=== PATIENT | female | born 1970 | race Caucasian/White ===

== ENCOUNTER 2022-06-24 11:27 | Emergency (ER) | payer SELFPAY ==
[~2022-06-24] VITALS: Ht 154.9 cm; Wt 37.2 kg
[2022-06-24] MEDS ORDERED: LOSARTAN POTASSIUM 100 MG TAB PO ONE (12:00)
[2022-06-24] MEDS ORDERED: LACTATED RINGER'S 1,000 ML INJ ONE (12:00)
[2022-06-24] MEDS ORDERED: DIAZEPAM 5 MG TAB PO PRN (12:00)
[2022-06-24] MEDS ORDERED: DONNATAL/LIDOCAINE/MAALOX 30 ML SUSP PO NR (12:00)
[2022-06-24] MEDS ORDERED: FAMOTIDINE 20 MG/2 ML VIAL IV ONE (12:00)
[2022-06-24 12:08] LABS: BASOPHILS # (AUTO) 0.1 (0.0-0.1); BASOPHILS % 0.4 % (0.0-1.0); HEMATOCRIT 32.4 % (34.2-44.1); HEMOGLOBIN 10.8 g/dL (12.0-16.0); LYMPHOCYTES # (AUTO) 1.1 (1.0-3.2); MEAN CORPUSCULAR HEMOGLOBIN 29.4 pg (28-32); MEAN CORPUSCULAR HGB CONC 33.3 g/dL (31-35); MEAN CORPUSCULAR VOLUME 88.3 fL (81-99); MONOCYTES # (AUTO) 2.1 (0.2-0.8); MONOCYTES % 9.6 % (4.4-11.3); NEUTROPHILS # (AUTO) 18.6 (2.1-6.9); NEUTROPHILS % 84.2 % (38.7-80.0); PLATELET COUNT 431 x10e3/uL (140-360); RED BLOOD COUNT 3.67 x10e6/uL (3.6-5.1); RED CELL DISTRIBUTION WIDTH 13.1 % (11.7-14.4)
[2022-06-24 12:19] LABS: ALBUMIN 4.1 g/dL (3.5-5.0); ANION GAP 21.6 mmol/L (8-16); CALCIUM 9.8 mg/dL (8.4-10.2); CREATININE, SERUM 0.72 mg/dL (0.57-1.11)
[2022-06-24 12:23] LABS: POTASSIUM 2.6 mmol/L (3.5-5.1)
[2022-06-24] MEDS ORDERED: POTASSIUM CHLORIDE 20 MEQ TAB CR PO NR (12:30)
[2022-06-24 13:13] LABS: AMPHETAMINES SCREEN,URINE NEGATIVE (NEGATIVE); BENZODIAZEPINES SCREEN,URINE NEGATIVE (NEGATIVE); CLARITY,URINE CLEAR (CLEAR); COLOR,URINE YELLOW (YELLOW); KETONES,URINE NEGATIVE (NEGATIVE); LEUKOCYTE ESTERASE ,URINE NEGATIVE (NEGATIVE); NITRITE,URINE NEGATIVE (NEGATIVE); PHENCYCLIDINE SCREEN,URINE NEGATIVE (NEGATIVE); PROTEIN,URINE DIPSTICK NEGATIVE (NEGATIVE); URINE UROBILINOGEN 0.2 mg/dL (0.2 - 1)
[2022-06-24 13:16] LABS: BACTERIA,URINE FEW /HPF; EPITHELIAL CELLS,URINE FEW /LPF; RBC,URINE 0-5 /HPF (0-5); WBC,URINE (MAN) 0-5 /HPF (0-5)
[2022-06-24] MEDS ORDERED: LOSARTAN POTASS50 MG PO (14:21)
[2022-06-24] MEDS ORDERED: POTASSIUM CHLO20 ME1 PO (14:21)
[2022-06-24] MEDS ORDERED: PEPCID20 MG PO (14:21)
[2022-06-24 14:41] VITALS: BP 164/92
== END 2022-06-24 14:41 | disposition home or self-care (01) ==
LOC: ER 11:32
DX: R07.89 Other chest pain (principal); I10 Essential (primary) hypertension
CPT/HCPCS: 36415; 71045; 80053; 80307; 81001; 83690; 83880; 84484; 85025; 93005; 99284; J7121

== ENCOUNTER 2023-01-30 19:09 | Emergency (ER) | payer SELFPAY ==
[~2023-01-30] VITALS: Ht 154.9 cm; Wt 37.2 kg
[~2023-01-30 19:09] MED LIST: LOSARTAN POTASS50 MG PO; PEPCID20 MG PO; POTASSIUM CHLO20 ME1 PO
[2023-01-30 20:38] LABS: BASOPHILS # (AUTO) 0.1 (0.0-0.1); BASOPHILS % 0.5 % (0.0-1.0); EOSINOPHILS # (AUTO) 0.1 (0.0-0.4); EOSINOPHILS % 0.6 % (0.0-6.0); HEMATOCRIT 24.5 % (34.2-44.1); HEMOGLOBIN 7.5 g/dL (12.0-16.0); LYMPHOCYTES # (AUTO) 1.3 (1.0-3.2); LYMPHOCYTES % 13.2 % (18.0-39.1); MEAN CORPUSCULAR HEMOGLOBIN 20.6 pg (28-32); MEAN CORPUSCULAR HGB CONC 30.6 g/dL (31-35); MEAN CORPUSCULAR VOLUME 67.3 fL (81-99); MONOCYTES # (AUTO) 1.4 (0.2-0.8); MONOCYTES % 13.6 % (4.4-11.3); NEUTROPHILS # (AUTO) 7.3 (2.1-6.9); NEUTROPHILS % 71.6 % (38.7-80.0); PLATELET COUNT 383 x10e3/uL (140-360); RED BLOOD COUNT 3.64 x10e6/uL (3.6-5.1); RED CELL DISTRIBUTION WIDTH 24.5 % (11.7-14.4)
[2023-01-30] MEDS ORDERED: ALBUTEROL SULF 0.083% NEB SOLN 3 ML NEB NEB STA (20:38)
[2023-01-30] MEDS ORDERED: METHYLPREDNISOLONE SOD SUCC 125 MG/2ML VIAL IV STA (20:38)
[2023-01-30] MEDS ORDERED: IPRATROPIUM BROMIDE 0.02% 2.5 ML NEB NEB STA (20:48)
[2023-01-30] MEDS ORDERED: ALBUTEROL/IPRATROPIUM 3 ML NEB ONE (20:49)
[2023-01-30 20:50] VITALS: PULSE 81; RESP 16; O2SAT 100
[2023-01-30 20:52] LABS: ALBUMIN 2.8 g/dL (3.5-5.0); ALBUMIN/GLOBULIN RATIO 0.9 (0.8-2.0); ANION GAP 14.8 mmol/L (8-16); CALCIUM 7.9 mg/dL (8.4-10.2); CREATININE, SERUM 1.16 mg/dL (0.57-1.11)
[2023-01-30 20:55] LABS: POTASSIUM 1.8 mmol/L (3.5-5.1)
[2023-01-30] MEDS ORDERED: POTASSIUM CHLORIDE 10MEQ EA PO ONE (20:56)
[2023-01-30] MEDS ORDERED: POTASSIUM CHLORIDE 20MEQ/100ML 300 ML IV STA (20:56)
[2023-01-30 20:59] LABS: CREATINE KINASE MB 4.2 ng/mL (0-5.0)
[2023-01-30] MEDS ORDERED: POTASSIUM CHLORIDE 10MEQ EA ONE (21:03)
[2023-01-30 21:26] LABS: EOSINOPHILS % (MANUAL) 1 % (0-7); HYPOCHROMASIA SLIGHT; LYMPHOCYTES % (MANUAL) 19 % (19-48); MICROCYTOSIS SLIGHT; MONOCYTES % (MANUAL) 7 % (3.4-9.0); NEUTROPHILS % (MANUAL) 72 % (40-74); PLATELET ESTIMATE SLIGHTLY INCREASED; PLATELET MORPHOLOGY COMMENT FEW LARGE; RBC MORPHOLOGY COMMENT ABNORMAL
[2023-01-30 22:02] LABS: AMPHETAMINES SCREEN,URINE NEGATIVE (NEGATIVE); BENZODIAZEPINES SCREEN,URINE NEGATIVE (NEGATIVE); PHENCYCLIDINE SCREEN,URINE NEGATIVE (NEGATIVE)
[2023-01-31 01:18] LABS: ALBUMIN 2.7 g/dL (3.5-5.0); ALBUMIN/GLOBULIN RATIO 0.8 (0.8-2.0); ANION GAP 14.7 mmol/L (8-16); CALCIUM 8.2 mg/dL (8.4-10.2); CREATININE, SERUM 0.86 mg/dL (0.57-1.11)
[2023-01-31 01:29] LABS: POTASSIUM 2.7 mmol/L (3.5-5.1)
[2023-01-31 03:53] VITALS: BP 159/73; PULSE 87; RESP 18; TEMP 98.9; O2SAT 100
[2023-01-31] MEDS ORDERED: IOPAMIDOL 370 MG/ML 100 ML INFUS..BTL INJ ONE (05:54)
== END 2023-01-31 03:59 | disposition other institution (70) ==
LOC: ER 20:05
DX: R09.02 Hypoxemia (principal); R07.9 Chest pain, unspecified; J44.9 Chronic obstructive pulmonary disease, unspecified; E87.6 Hypokalemia; R91.8 Other nonspecific abnormal finding of lung field; I10 Essential (primary) hypertension; E87.1 Hypo-osmolality and hyponatremia; R60.9 Edema, unspecified; R94.31 Abnormal electrocardiogram [ECG] [EKG]; Z20.822 Contact with and (suspected) exposure to COVID-19; F17.210 Nicotine dependence, cigarettes, uncomplicated
CPT/HCPCS: 36415; 71260; 80053; 80307; 82550; 82553; 83690; 83880; 84484; 85025; 85379; 93005; 94640; 94799; 99284; J2930; J3480; Q9967; U0002

== ENCOUNTER 2023-02-05 01:11 | Inpatient (IN) | payer SELFPAY ==
[2023-02-05] VITALS (10 sets, daily range): BP systolic 169–178; BP diastolic 75–82; PULSE 98–115; RESP 17–22; TEMP 98–99.3; O2SAT 92–100
[~2023-02-05] VITALS: Ht 154.9 cm; Wt 47.6 kg
[2023-02-05] MEDS ORDERED: ALBUTEROL SULF 0.083% NEB SOLN 3 ML NEB NEB STA (01:39)
[2023-02-05] MEDS ORDERED: ACETAMINOPHEN 325 MG TAB ONE (01:44)
[2023-02-05] MEDS ORDERED: IPRATROPIUM BROMIDE 0.02% 2.5 ML NEB NEB ONE (01:45)
[2023-02-05] MEDS ORDERED: ACETAMINOPHEN 325 MG TAB PO ONE (01:45)
[2023-02-05 01:53] LABS: BASOPHILS % 0.2 % (0.0-1.0); HEMOGLOBIN 6.5 g/dL (12.0-16.0); LYMPHOCYTES # (AUTO) 2.8 (1.0-3.2); LYMPHOCYTES % 30.7 % (18.0-39.1); MEAN CORPUSCULAR HEMOGLOBIN 20.1 pg (28-32); MEAN CORPUSCULAR VOLUME 69.3 fL (81-99); MONOCYTES # (AUTO) 1.3 (0.2-0.8); MONOCYTES % 14.4 % (4.4-11.3); NEUTROPHILS # (AUTO) 4.9 (2.1-6.9); PLATELET COUNT 615 x10e3/uL (140-360); RED BLOOD COUNT 3.23 x10e6/uL (3.6-5.1); RED CELL DISTRIBUTION WIDTH 25.3 % (11.7-14.4)
[2023-02-05 02:01] LABS: HEMATOCRIT 22.4 % (34.2-44.1)
[2023-02-05 02:12] LABS: ALBUMIN/GLOBULIN RATIO 0.9 (0.8-2.0); ANION GAP 14.7 mmol/L (8-16); CALCIUM 8.4 mg/dL (8.4-10.2); CREATININE, SERUM 0.68 mg/dL (0.57-1.11); POTASSIUM 4.7 mmol/L (3.5-5.1)
[2023-02-05 02:19] LABS: CREATINE KINASE MB 1.6 ng/mL (0-5.0)
[2023-02-05 02:20] LABS: B-TYPE NATRIURETIC PEPTIDE2 678.3 pg/mL (0-100)
[2023-02-05] MEDS ORDERED: SODIUM CHLORIDE 0.9% 250ML 250 ML IV ONE (02:30)
[2023-02-05] MEDS ORDERED: SODIUM CHLORIDE FLUSH 10 ML SYR INJ PRN (02:45)
[2023-02-05] MEDS ORDERED: FUROSEMIDE INJ 10 MG/ML 4 ML VIAL IV ONE (02:45)
[2023-02-05] MEDS ORDERED: ALBUTEROL/IPRATROPIUM 3 ML NEB NEB SCH (03:00)
[2023-02-05 03:16] LABS: FERRITIN 15.87 ng/mL (4.63-204.00)
[2023-02-05] MEDS: IPRATROPIUM BROMIDE 0.02% 2.5 ML NEB NEB SCH ×2 (03:30→06:15)
[2023-02-05] MEDS: ALBUTEROL SULF 0.083% NEB SOLN 3 ML NEB NEB SCH ×2 (03:30→06:15)
[2023-02-05] MEDS: METHYLPREDNISOLONE SOD SUCC 40 MG/ML VIAL 1ML IV SCH ×2 (06:40→12:00)
[2023-02-05] MEDS: FUROSEMIDE INJ 10 MG/ML 4 ML VIAL IV SCH (09:00)
[2023-02-05 09:04] LABS: CREATINE KINASE MB 1.9 ng/mL (0-5.0)
[2023-02-05] MEDS ORDERED: ALBUTEROL/IPRATROPIUM 3 ML NEB NEB PRN (09:45)
[2023-02-05] MEDS ORDERED: CHLORDIAZEPOXIDE HCL 10 MG CAP PO PRN (09:45)
[2023-02-05] MEDS ORDERED: SODIUM CHLORIDE 0.9% 250ML 250 ML ONE (09:54)
[2023-02-05] MEDS ORDERED: IOPAMIDOL 370 MG/ML 100 ML INFUS..BTL INJ ONE (11:13)
[2023-02-05] MEDS ORDERED: AMLODIPINE BESY10 MG PO (12:07)
[2023-02-05] MEDS ORDERED: ACETAMINOPHEN 325 MG TAB PO PRN (12:15)
[2023-02-05] MEDS: ALBUTEROL/IPRATROPIUM 3 ML NEB NEB SCH ×2 (14:14→19:00)
[2023-02-05 16:40] LABS: CREATINE KINASE MB 1.6 ng/mL (0-5.0)
[2023-02-05] MEDS ORDERED: LOSARTAN POTASSIUM 100 MG TAB ONE (18:13)
[2023-02-05] MEDS ORDERED: AMLODIPINE BESYLATE 10 MG TAB ONE (18:13)
[2023-02-05] MEDS: AMLODIPINE BESYLATE 10 MG TAB PO SCH (18:19)
[2023-02-05] MEDS ORDERED: PREDNISONE 10 MG TAB PO SCH (21:00)
[2023-02-06] VITALS (9 sets, daily range): BP systolic 114–166; BP diastolic 57–76; PULSE 75–102; RESP 17–22; TEMP 97.8–99.7; O2SAT 93–98
[2023-02-06] MEDS: ALBUTEROL/IPRATROPIUM 3 ML NEB NEB SCH ×4 (01:00→20:05)
[2023-02-06 06:48] LABS: BASOPHILS % 0.1 % (0.0-1.0); HEMOGLOBIN 10.6 g/dL (12.0-16.0); LYMPHOCYTES # (AUTO) 0.8 (1.0-3.2); LYMPHOCYTES % 8.9 % (18.0-39.1); MEAN CORPUSCULAR HEMOGLOBIN 23.5 pg (28-32); MEAN CORPUSCULAR HGB CONC 31.2 g/dL (31-35); MEAN CORPUSCULAR VOLUME 75.4 fL (81-99); MONOCYTES % 11.5 % (4.4-11.3); NEUTROPHILS # (AUTO) 7.1 (2.1-6.9); NEUTROPHILS % 78.6 % (38.7-80.0); PLATELET COUNT 550 x10e3/uL (140-360); RED BLOOD COUNT 4.51 x10e6/uL (3.6-5.1)
[2023-02-06 07:16] LABS: ALBUMIN 2.9 g/dL (3.5-5.0); ALBUMIN/GLOBULIN RATIO 0.9 (0.8-2.0); ANION GAP 14.4 mmol/L (8-16); CALCIUM 8.7 mg/dL (8.4-10.2); CREATININE, SERUM 0.74 mg/dL (0.57-1.11); POTASSIUM 3.4 mmol/L (3.5-5.1)
[2023-02-06] MEDS ORDERED: SODIUM CHLORIDE 0.9% 100 ML ONE (08:07)
[2023-02-06] MEDS ORDERED: LOSARTAN POTASSIUM 25 MG TAB PO SCH (09:00)
[2023-02-06] MEDS ORDERED: IRON SUCROSE 100 MG in SODIUM CHLORIDE 0.9% 100 ML IV SCH (09:00)
[2023-02-06] MEDS: FUROSEMIDE INJ 10 MG/ML 4 ML VIAL IV SCH (09:43)
[2023-02-06] MEDS: LISINOPRIL 20 MG TAB PO SCH (09:44)
[2023-02-06] MEDS: AMLODIPINE BESYLATE 10 MG TAB PO SCH (09:44)
[2023-02-06] MEDS: PREDNISONE 10 MG TAB PO SCH ×2 (09:45→21:12)
[2023-02-06] MEDS: METOPROLOL TARTRATE 25 MG TAB PO SCH ×2 (09:48→16:49)
[2023-02-06] MEDS: BUDESONIDE/FORMOTEROL 160/4.5MCG INHALER INH SCH (10:00)
[2023-02-07 00:38] VITALS: BP 157/62; PULSE 84; RESP 18; TEMP 97.8; O2SAT 93
[2023-02-07] MEDS: ALBUTEROL/IPRATROPIUM 3 ML NEB NEB SCH ×2 (01:00→07:18)
[2023-02-07 04:00] VITALS: BP 155/68; PULSE 85; RESP 17; TEMP 97.5; O2SAT 96
[2023-02-07 05:06] LABS: INR 0.87; PROTHROMBIN TIME 12.3 seconds (11.9-14.5)
[2023-02-07] MEDS: BUDESONIDE/FORMOTEROL 160/4.5MCG INHALER INH SCH ×2 (07:13→08:30)
[2023-02-07 08:00] VITALS: BP 157/70; PULSE 94; RESP 21; TEMP 99.6; O2SAT 98
[2023-02-07 08:30] VITALS: PULSE 94; RESP 18; O2SAT 92
[2023-02-07 09:10] VITALS: BP 157/70; PULSE 94; RESP 18; TEMP 99.6; O2SAT 92
[2023-02-07] MEDS: PREDNISONE 10 MG TAB PO SCH (10:45)
[2023-02-07] MEDS: LISINOPRIL 20 MG TAB PO SCH (10:46)
[2023-02-07] MEDS: FUROSEMIDE INJ 10 MG/ML 4 ML VIAL IV SCH (10:46)
[2023-02-07] MEDS: METOPROLOL TARTRATE 25 MG TAB PO SCH (10:46)
== END 2023-02-07 11:44 | disposition home or self-care (01) | DRG 190 ==
LOC: ER 01:16 → ERHOLD 02:43 → MED/SURG 09:12
PROVIDERS: ADMIT Internal Medicine; ATTEND Internal Medicine
PROC: 30233N1 Transfusion of Nonautologous Red Blood Cells into Peripheral Vein, Percutaneous Approach (ICD-10-PCS; principal; 2023-02-05)
DX: J44.1 Chronic obstructive pulmonary disease with (acute) exacerbation (principal); I50.23 Acute on chronic systolic (congestive) heart failure; E46 Unspecified protein-calorie malnutrition; Z68.1 Body mass index [BMI] 19.9 or less, adult; E87.1 Hypo-osmolality and hyponatremia; I42.6 Alcoholic cardiomyopathy; D50.8 Other iron deficiency anemias; F17.210 Nicotine dependence, cigarettes, uncomplicated; F10.20 Alcohol dependence, uncomplicated; D63.8 Anemia in other chronic diseases classified elsewhere
CPT/HCPCS: 36415; 71045; 71046; 74177; 80053; 80320; 82550; 82553; 82607; 82728; 82746; 83540; 83605; 83690; 83880; 84466; 84484; 85025; 85610; 86850; 86900; 86920; 87040; 87071; 87205; 93005; 93306; 94664; 94799; 99284; J0696; J1756; J1940; J2920; J7050; J7512; P9016; Q9967

== ENCOUNTER 2025-07-03 02:38 | Observation (INO) | payer MEDICAID, OTHER ==
[~2025-07-03] VITALS: Ht 154.9 cm; Wt 47.6 kg
[2025-07-03] VITALS (24 sets, daily range): BP systolic 145–201; BP diastolic 64–145; PULSE 75–98; RESP 14–22; TEMP 97–98.9; O2SAT 95–100
[~2025-07-03 02:38] MED LIST changes: +AMLODIPINE BESY10 MG PO
[2025-07-03] MEDS: ALBUTEROL SULF 0.083% NEB SOLN 3 ML NEB NEB STA (03:24)
[2025-07-03] MEDS: IPRATROPIUM BROMIDE 0.02% 2.5 ML NEB NEB ONE (03:25)
[2025-07-03 03:31] LABS: ABG BASE EXCESS -12.0 mmol/L (-2 - 3); ABG HCO3 16 mmol/L (22-26); ABG OXYGEN SATURATION 99.0 % (95-98); ABG PCO2 42 mmHg (35-45); ABG PH 7.19 (7.35-7.45); ABG PO2 151 mmHg (80-105); ABG TCO2 17
[2025-07-03 03:33] LABS: BASOPHILS % 0.8 % (0.0-1.0); EOSINOPHILS % 0.9 % (0.0-6.0); LYMPHOCYTES % 27.4 % (18.0-39.1); MONOCYTES % 5.1 % (4.4-11.3); NEUTROPHILS % 65.6 % (38.7-80.0); RED CELL DISTRIBUTION WIDTH 15.0 % (11.7-14.4)
[2025-07-03 03:35] LABS: INR 0.93
[2025-07-03] MEDS: FUROSEMIDE INJ 10 MG/ML 4 ML VIAL IV ONE (03:36)
[2025-07-03] MEDS: LORAZEPAM INJ 2 MG/ML VIAL IV ONE (03:36)
[2025-07-03 03:45] LABS: EST GLOMERULAR FILTRATION RATE 23.0 ML/MIN (>=60)
[2025-07-03 04:07] LABS: CORONAVIRUS COVID-19 AG NEGATIVE (NEGATIVE)
[2025-07-03] MEDS ORDERED: LORAZEPAM INJ 2 MG/ML VIAL IV PRN ×2 (04:15→10:45)
[2025-07-03] MEDS ORDERED: SODIUM CHLORIDE FLUSH 10 ML SYR INJ PRN (04:15)
[2025-07-03] MEDS: HYDRALAZINE HCL 20 MG/ML VIAL IV PRN (04:51)
[2025-07-03] MEDS: ALBUTEROL/IPRATROPIUM 3 ML NEB NEB SCH (07:28)
[2025-07-03] MEDS: FUROSEMIDE INJ 10 MG/ML 4 ML VIAL IV SCH (08:21)
[2025-07-03] MEDS: AMLODIPINE BESYLATE 10 MG TAB PO SCH (08:21)
[2025-07-03] MEDS: FUROSEMIDE INJ 100 MG in SODIUM CHLORIDE 0.9% 90 ML IV SCH (09:30)
[2025-07-03] MEDS: SODIUM CHLORIDE 0.9% 250ML 250 ML ONE (09:48)
[2025-07-03] MEDS: BUMETANIDE INJ 0.25MG/ML 4ML VIAL IV STA (10:01)
[2025-07-03] MEDS: MUPIROCIN 2% OINT 22 GM TUBE TOP SCH (10:01)
[2025-07-03] MEDS ORDERED: HYDRALAZINE HCL 20 MG/ML VIAL IV PRN (10:15)
[2025-07-03 12:25] LABS: EST GLOMERULAR FILTRATION RATE 21.0 ML/MIN (>=60)
[2025-07-03] MEDS: LIDOCAINE 4% PATCH TP SCH (14:02)
[2025-07-03] MEDS ORDERED: BUMETANIDE2 MG PO (14:09)
[2025-07-03] MEDS ORDERED: PREDNISONE20 MG PO (14:18)
[2025-07-03] MEDS ORDERED: DOXYCYCLINE MO100 M1 PO (14:20)
[2025-07-03] MEDS: LACTULOSE SYRUP 20 GM/30 ML UDC PO ONE (14:54)
[2025-07-03] MEDS: DIAZEPAM 2 MG TAB PO ONE ×2 (17:30)
[2025-07-04] MEDS ORDERED: ENOXAPARIN 30 MG/0.3 ML SYR SC SCH (09:00)
[2025-07-08 06:03] LABS: ABG BASE EXCESS -12.0 mmol/L (-2 - 3); ABG HCO3 16 mmol/L (22-26); ABG OXYGEN SATURATION 99.0 % (95-98); ABG PCO2 42 mmHg (35-45); ABG PH 7.19 (7.35-7.45); ABG PO2 151 mmHg (80-105); ABG TCO2 17
[2025-07-09] MEDS ORDERED: SODIUM BICARBO650 MG PO (15:24)
[2025-07-09] MEDS ORDERED: COZAAR100 MG PO (15:24)
[2025-07-09] MEDS ORDERED: DOXYCYCLINE HY100 MG PO (15:24)
[2025-07-09] MEDS ORDERED: ATORVASTATIN CA20 MG PO (15:24)
[2025-07-09] MEDS ORDERED: ASPIRIN EC81 MG PO (15:24)
[2025-07-09] MEDS ORDERED: PREDNISONE10 MG PO (15:24)
[2025-07-09] MEDS ORDERED: VENTOLIN HFA18 GM INH (15:28)
[2025-07-09] MEDS ORDERED: METOPROLOL SUCC50 MG PO (15:29)
== END 2025-07-03 17:37 | disposition hospice, home (50) ==
LOC: ER 02:42 → INTOOBSV 04:25 → ERHOLD 04:25 → ICU 05:00
PROVIDERS: ADMIT Family Medicine Adult Medicine; ATTEND Family Medicine Adult Medicine
DX: I13.2 Hypertensive heart and chronic kidney disease with heart failure and with stage 5 chronic kidney disease, or end stage renal disease (principal); N18.6 End stage renal disease; I50.23 Acute on chronic systolic (congestive) heart failure; E87.5 Hyperkalemia; I16.1 Hypertensive emergency; N17.9 Acute kidney failure, unspecified; E87.20 Acidosis, unspecified; F10.21 Alcohol dependence, in remission; J96.21 Acute and chronic respiratory failure with hypoxia; R07.89 Other chest pain; D64.9 Anemia, unspecified; J44.9 Chronic obstructive pulmonary disease, unspecified; G40.909 Epilepsy, unspecified, not intractable, without status epilepticus; F17.210 Nicotine dependence, cigarettes, uncomplicated
CPT/HCPCS: 36415; 36600; 71045; 80048; 80053; 82550; 82805; 83605; 83735; 83880; 84484; 85025; 85610; 85730; 87040; 87071; 87205; 87428; 93005; 93306; 94640 ×2; 94660; 94799; 99285; G0378; J0360; J0456; J0696; J1938; J2060; J7050